=== PATIENT | female | born 1995 | race Caucasian/White ===

== ENCOUNTER → 2023-08-01 | Outpatient (CLI) | payer OTHER ==
[2023-08-01 08:17] LABS: TOTAL 25(OH) VITAMIN D 25.5 NG/ML (20.0-100.0); VITAMIN B12 LEVEL 380 PG/ML (211-911)
[2023-08-01 08:21] LABS: C REACTIVE PROTEIN QUANTITATIV < 0.40 MG/DL (<1.0)
[2023-08-01 08:25] LABS: IRON (FE) 147 UG/DL (50-170); PERCENT SATURATION 42.1 % (13.2-45.0); TOTAL IRON BINDING CAPACITY 349 UG/DL (250-425)
== END ==
LOC: M LAB 06:56
PROVIDERS: ATTEND Internal Medicine Adolescent Medicine
DX: K50.00 Crohn's disease of small intestine without complications (principal); K90.49 Malabsorption due to intolerance, not elsewhere classified